=== PATIENT | female | born 1985 | race Caucasian/White ===

== ENCOUNTER 2018-03-11 22:01 | Emergency (ER) | payer OTHER | END 2018-03-12 00:57 | disposition home or self-care (01) | LOC: JER 03-12 00:57 ==

== ENCOUNTER 2021-08-02 09:28 | Emergency (ER) | payer OTHER ==
[2021-08-02 09:53] VITALS: BP 107/58; PULSE 96; TEMP 97.9; BMI 42.1
[2021-08-02] MEDS ORDERED: SODIUM CHLORIDE 0.9% 500 ML INFUS.BAG IV ONE (09:58)
[2021-08-02] MEDS ORDERED: ACETAMINOPHEN 500 MG TABLET (FP) PO ONE (10:13)
[2021-08-02 11:09] LABS: BASO % 0.6 % (0-2.0); EOS % 3.7 % (0-4.5); HEMATOCRIT 37.6 % (32.4-45.2); LYMPH % 19.9 % (8-40); MCH 30.8 pg (25.7-33.7); MCHC 34.6 g/dl (32.0-36.0); MEAN CELL VOLUME 88.9 fl (80-96); MEAN PLT VOLUME 8.5 fl (7.5-11.1); MONO % 8.8 % (3.8-10.2); PLATELET COUNT 253 10^3/uL (134-434); RBC 4.24 M/mm3 (3.60-5.2); RDW 14.2 % (11.6-15.6); WHITE BLOOD COUNT 10.2 K/mm3 (4.0-10.0)
[2021-08-02 11:30] LABS: INR 1.1 (0.83-1.09); PROTHROMBIN TIME (PATIENT) 12.7 SEC (9.7-13.0)
[2021-08-02 11:32] LABS: ACTIVATED PTT 24.3 SECONDS (25.2-36.5)
[2021-08-02 11:33] LABS: CALCIUM 8.6 mg/dL (8.5-10.1)
[2021-08-02 11:34] LABS: ALBUMIN 3.5 g/dl (3.4-5.0); BLOOD UREA NITROGEN 8.1 mg/dL (7-18)
[2021-08-02 11:37] LABS: CREATININE 0.7 mg/dL (0.55-1.3)
[2021-08-02 11:39] LABS: BILIRUBIN,TOTAL 0.7 mg/dL (0.2-1)
[2021-08-02] MEDS ORDERED: ACETAMINOPHEN 325 MG TABLET (FP) ONE (11:41)
[2021-08-02] MEDS ORDERED: RHO(D) IMMUNE GLOBULIN 1,500 UNIT DISP.SYRIN IM ONE (13:12)
== END 2021-08-02 14:45 | disposition left against medical advice (07) ==
LOC: JER 09:28
PROC: 3E0234Z Introduction of Serum, Toxoid and Vaccine into Muscle, Percutaneous Approach (ICD-10-PCS; principal; 2021-08-02)
DX: O26.851 Spotting complicating pregnancy, first trimester (principal); Z3A.08 8 weeks gestation of pregnancy
CPT/HCPCS: 36415; 76830-TC; 80053; 84702; 85025; 85610; 85730; 86850; 86900; 86901; 86999; 90471; 99284-25; J1561